=== PATIENT | male | born 1955 | race African-American/Black ===

== ENCOUNTER 2021-03-07 11:08 | Emergency (ER) | payer MEDICAID ==
[~2021-03-07] VITALS: Ht 180.3 cm; Wt 87.0 kg
[~2021-03-07 11:08] MED LIST: ASPI-1497 PO; BACLOFEN; DOCU-138 MT; ERGO400C; GABA800T97 PO; GABAPENTIN; HYDR-4001 MT; MULT-1146 PO; TAMS-11 PO; VICODIN
[2021-03-07 11:10] VITALS: BP 122/91
[2021-03-07] MEDS ORDERED: ACETAMINOPHEN 325MG TABLET PO ONE (12:00)
[2021-03-07] MEDS ORDERED: CARBAMIDE PEROXIDE 6.5% OTIC SOLN 15ML EACH EAR ONE (12:15)
== END 2021-03-07 14:30 | disposition left against medical advice (07) ==
LOC: ER 11:08
DX: M54.2 Cervicalgia (principal); Z79.82 Long term (current) use of aspirin; Z79.899 Other long term (current) drug therapy; Z98.890 Other specified postprocedural states
CPT/HCPCS: 93005; 99284

== ENCOUNTER 2021-07-16 08:45 | Emergency (ER) | payer MEDICARE, MEDICAID ==
[~2021-07-16] VITALS: Ht 188 cm; Wt 84.0 kg
[2021-07-16] MEDS ORDERED: IBUPROFEN 600MG TABLET PO STA (09:35)
[2021-07-16] MEDS ORDERED: ACETAMINOPHEN 325MG TABLET PO STA (09:35)
[2021-07-16 09:57] LABS: CLARITY URINE CLEAR (CLEAR); COLOR URINE YELLOW (YELLOW); KETONES URINE NEGATIVE (NEGATIVE); LEUKOCYTE ESTERASE URINE NEGATIVE (NEGATIVE); NITRITE URINE NEGATIVE (NEGATIVE); OCCULT BLOOD URINE NEGATIVE (NEGATIVE); PROTEIN URINE NEGATIVE (NEGATIVE); SPECIFIC GRAVITY URINE 1.003 (1.005-1.030); UROBILINOGEN URINE 0.2 E.U./dL (0.2-1.0)
[2021-07-16 10:12] VITALS: BP 135/117
[2021-07-16 11:33] LABS: BASOPHILS % 0.9 % (0.0-2.0); EOSINOPHILS % 3.8 % (0.0-5.0); HEMOGLOBIN. 14.3 g/dL (14.0-18.0); LYMPHOCYTES % 47.6 % (20.0-50.0); MEAN CORPUSCULAR HEMOGLOBIN 33.4 pg (28.0-32.0); MEAN CORPUSCULAR VOLUME 100.4 fL (80.0-94.0); MEAN PLATELET VOLUME 8.8 fl (7.4-10.4); MONOCYTES % 4.7 % (2.0-8.0); PLATELET 185 x1000/uL (130-400); RED BLOOD CELL COUNT 4.28 mill/uL (4.7-6.1); RED CELL DISTRIBUTION WIDTH 13.4 % (11.6-14.6)
[2021-07-16 11:41] LABS: CHLORIDE 103 mEq/L (98-107)
[2021-07-16] MEDS ORDERED: IBUP-2028 MT (11:57)
== END 2021-07-16 12:26 | disposition home or self-care (01) ==
LOC: ER 08:45
DX: R51.9 Headache, unspecified (principal); R42 Dizziness and giddiness; G81.94 Hemiplegia, unspecified affecting left nondominant side; B20 Human immunodeficiency virus [HIV] disease; F17.210 Nicotine dependence, cigarettes, uncomplicated; Z71.6 Tobacco abuse counseling; Z87.828 Personal history of other (healed) physical injury and trauma
CPT/HCPCS: 36415; 80053; 81003; 82962; 84484; 85025; 99284; 99406

== ENCOUNTER 2022-05-31 00:29 | Emergency (ER) | payer MEDICARE, MEDICAID ==
[~2022-05-31] VITALS: Ht 188 cm; Wt 84.0 kg
[~2022-05-31 00:29] MED LIST changes: +IBUP-2028 MT
[2022-05-31] MEDS ORDERED: IPRATROPIUM BROMIDE (0.02%) 0.5MG/2.5ML NEB HHN STA (00:46)
[2022-05-31] MEDS ORDERED: PREDNISONE 20MG TABLET PO STA (00:46)
[2022-05-31 00:48] VITALS: BP 126/87
[2022-05-31 01:23] LABS: CHLORIDE 101 mEq/L (98-107)
[2022-05-31 01:28] LABS: HEMATOCRIT. 39.7 % (42.0-52.0); HEMOGLOBIN. 13.6 g/dL (14.0-18.0); MEAN CORPUSCULAR HEMOGLOBIN 34.6 pg (28.0-32.0); MEAN CORPUSCULAR VOLUME 101.4 fL (80.0-94.0); MEAN PLATELET VOLUME 9.4 fl (7.4-10.4); PLATELET 150 x1000/uL (130-400); RED BLOOD CELL COUNT 3.92 mill/uL (4.7-6.1); RED CELL DISTRIBUTION WIDTH 13.1 % (11.6-14.6)
[2022-05-31] MEDS: ALBUTEROL (0.083%) 2.5MG/3ML NEB HHN SCH ×3 (01:46→01:52)
[2022-05-31] MEDS ORDERED: PRED10TA MT (03:32)
[2022-05-31] MEDS ORDERED: ALBU6.7H3 INH (03:32)
[2022-05-31 07:01] LABS: PLATELET ESTIMATE NORMAL
== END 2022-05-31 03:55 | disposition home or self-care (01) ==
LOC: ER 00:29
DX: J44.9 Chronic obstructive pulmonary disease, unspecified (principal); F17.200 Nicotine dependence, unspecified, uncomplicated; Z79.899 Other long term (current) drug therapy
CPT/HCPCS: 36415; 71045; 80053; 83605; 83880; 84484; 85025; 94644; 99285; J7512

== ENCOUNTER 2024-06-19 13:30 | Emergency (ER) | payer MEDICAID, MEDICARE ==
[~2024-06-19] VITALS: Ht 185.4 cm; Wt 82.0 kg
[~2024-06-19 13:30] MED LIST changes: +ALBU6.7H3 INH; +PRED10TA MT; -TAMS-11 PO; +TAMS-54 PO
[2024-06-19 13:48] VITALS: O2SAT 96
[2024-06-19 15:51] LABS: CLARITY URINE CLEAR (CLEAR); COLOR URINE DARK YELLOW (YELLOW); GLUCOSE URINE NEGATIVE (NEGATIVE); KETONES URINE TRACE (NEGATIVE); LEUKOCYTE ESTERASE URINE NEGATIVE (NEGATIVE); NITRITE URINE NEGATIVE (NEGATIVE); OCCULT BLOOD URINE NEGATIVE (NEGATIVE); PH URINE 5.5 (4.5-8.0); PROTEIN URINE NEGATIVE (NEGATIVE); SPECIFIC GRAVITY URINE 1.025 (1.005-1.030)
[2024-06-19] MEDS: TETRACAINE 0.5% OPHTH DROPS 4ML RIGHTEYE ONE (15:54)
[2024-06-19] MEDS: FLUORESCEIN SODIUM 1MG/STRIP RIGHTEYE ONE (15:54)
[2024-06-19] MEDS ORDERED: PROP1DRO2 MT (16:06)
[2024-06-19] MEDS ORDERED: PROP1DRO2 RIGHTEYE (16:13)
[2024-06-19 16:20] VITALS: BP 143/87; PULSE 84; RESP 18; TEMP 36.9; O2SAT 98
== END 2024-06-19 16:22 | disposition home or self-care (01) ==
LOC: ER 13:30
DX: H57.89 Other specified disorders of eye and adnexa (principal); Z79.899 Other long term (current) drug therapy
CPT/HCPCS: 81003; 99283

== ENCOUNTER 2025-01-05 14:47 | Inpatient (IN) | payer MEDICARE, MEDICAID ==
[~2025-01-05] VITALS: Ht 188 cm; Wt 73.5 kg
[~2025-01-05 14:47] MED LIST changes: +PROP1DRO2 RIGHTEYE
[2025-01-05] MEDS: ALBUTEROL (0.083%) 2.5MG/3ML NEB HHN SCH (16:30)
[2025-01-05] MEDS: IPRATROPIUM BROMIDE (0.02%) 0.5MG/2.5ML NEB HHN SCH (16:30)
[2025-01-05 16:32] VITALS: PULSE 82; RESP 23; O2SAT 96
[2025-01-05 16:52] VITALS: PULSE 95; RESP 22; O2SAT 100
[2025-01-05 17:06] LABS: INR 1.0
[2025-01-05 17:07] LABS: BASOPHILS % 0.5 % (0.0-2.0); EOSINOPHILS % 1.4 % (0.0-5.0); HEMATOCRIT. 42.2 % (42.0-52.0); HEMOGLOBIN. 14.2 g/dL (14.0-18.0); LYMPHOCYTES % 15.7 % (20.0-50.0); MEAN PLATELET VOLUME 9.6 fl (7.4-10.4); MONOCYTES % 11.8 % (2.0-8.0); NEUTROPHILS % 70.6 % (40.0-76.0); PLATELET 148 x1000/uL (130-400); RED BLOOD CELL COUNT 4.18 mill/uL (4.7-6.1); RED CELL DISTRIBUTION WIDTH 12.6 % (11.6-14.6)
[2025-01-05] MEDS: METHYLPREDNISOLONE SOD SUCC 125MG/2ML (ACT-O-VIAL) IV ONE (17:08)
[2025-01-05] MEDS: SODIUM CHLORIDE 0.9% (SEPSIS BOLUS) IV ONE (17:08)
[2025-01-05] MEDS: CEFTRIAXONE 1GM/50ML 50 ML IV ONE (17:09)
[2025-01-05 17:11] LABS: CREATININE 0.8 mg/dL (0.6-1.3); TROPONIN I HIGH SENSITIVITY 9 ng/L (3.0-53); UREA NITROGEN BLOOD 9 mg/dL (9-23)
[2025-01-05 17:12] VITALS: PULSE 82; RESP 20; O2SAT 100
[2025-01-05 17:13] LABS: ASPARTATE AMINOTRANSFERASE 24 IU/L (<34); BILIRUBIN DIRECT 0.3 mg/dL (<=3.0)
[2025-01-05 17:14] LABS: BILIRUBIN TOTAL 0.9 mg/dL (0.1-1.0); PROTEIN TOTAL 7.5 g/dL (6.0-8.3)
[2025-01-05] MEDS: AZITHROMYCIN 500MG/250ML 250 ML IV ONE (17:37)
[2025-01-05] MEDS: AZITHROMYCIN 500MG/250ML 250 ML IV NR (17:38)
[2025-01-05 18:22] LABS: CLARITY URINE CLEAR (CLEAR); COLOR URINE DARK YELLOW (YELLOW); GLUCOSE URINE NEGATIVE (NEGATIVE); KETONES URINE 1+ (NEGATIVE); LEUKOCYTE ESTERASE URINE NEGATIVE (NEGATIVE); NITRITE URINE NEGATIVE (NEGATIVE); OCCULT BLOOD URINE NEGATIVE (NEGATIVE); PH URINE 5.5 (4.5-8.0); PROTEIN URINE NEGATIVE (NEGATIVE); SPECIFIC GRAVITY URINE 1.025 (1.005-1.030); UROBILINOGEN URINE 1.0 E.U./dL (0.2-1.0)
[2025-01-05] MEDS: ASPIRIN 81MG TABLET PO ONE (18:50)
[2025-01-05] MEDS: KETOROLAC 15MG/ML VIAL IV ONE (19:31)
[2025-01-05 19:59] LABS: INFLUENZA TYPE A Presumptive Negative (Pres. Neg.); INFLUENZA TYPE B Presumptive Negative (Pres. Neg.)
[2025-01-05 20:00] LABS: RESPIRATORY SYNCYTIAL VIRUS Not Detected (Not Detectd)
[2025-01-05 21:17] VITALS: BP 128/80; PULSE 105; RESP 22; TEMP 36.8; O2SAT 97
[2025-01-06] VITALS (10 sets, daily range): BP systolic 111–128; BP diastolic 60–80; PULSE 53–105; RESP 18–22; TEMP 36.4–36.8072; O2SAT 96–100
[2025-01-06] MEDS: METHYLPREDNISOLONE SOD SUCC 40MG/ML (ACT-O-VIAL) IV SCH (01:00)
[2025-01-06] MEDS: GABAPENTIN 400MG CAPSULE PO SCH (01:13)
[2025-01-06] MEDS: TAMSULOSIN HCL 0.4MG SR CAPSULE PO SCH (01:13)
[2025-01-06] MEDS: BACLOFEN 10MG TABLET PO SCH (01:14)
[2025-01-06] MEDS: IPRATROPIUM/ALBUTEROL 0.5-3(2.5)MG/3ML NEB HHN PRN (01:39)
[2025-01-06 07:56] LABS: HEMATOCRIT. 36.6 % (42.0-52.0); HEMOGLOBIN. 12.3 g/dL (14.0-18.0); MEAN PLATELET VOLUME 10.1 fl (7.4-10.4); PLATELET 137 x1000/uL (130-400); RED BLOOD CELL COUNT 3.63 mill/uL (4.7-6.1); RED CELL DISTRIBUTION WIDTH 12.7 % (11.6-14.6)
[2025-01-06 08:14] LABS: CREATININE 0.8 mg/dL (0.6-1.3); TROPONIN I HIGH SENSITIVITY 4 ng/L (3.0-53)
[2025-01-06 08:15] LABS: UREA NITROGEN BLOOD 10 mg/dL (9-23)
[2025-01-06 08:16] LABS: ASPARTATE AMINOTRANSFERASE 19 IU/L (<34)
[2025-01-06 08:17] LABS: BILIRUBIN TOTAL 0.5 mg/dL (0.1-1.0); PROTEIN TOTAL 5.9 g/dL (6.0-8.3)
[2025-01-06] MEDS: PANTOPRAZOLE 40MG DR TABLET PO SCH (08:27)
[2025-01-06] MEDS: ENOXAPARIN 40MG/0.4ML SYR SUBCUT SCH (08:28)
[2025-01-06] MEDS ORDERED: BENZONATATE 100MG CAPSULE PO PRN (11:45)
[2025-01-06] MEDS: GUAIFENESIN-DM 200MG-20MG/10ML UDC PO PRN (12:34)
[2025-01-06] MEDS: IPRATROPIUM/ALBUTEROL 0.5-3(2.5)MG/3ML NEB HHN SCH (14:07)
[2025-01-06] MEDS: BENZONATATE 100MG CAPSULE PO SCH (16:34)
[2025-01-06] MEDS: ASPIRIN 81MG EC TABLET PO SCH (16:34)
[2025-01-06 20:38] LABS: LYMPHOCYTES % MANUAL 3.0 % (20.0-50.0); MONOCYTES % MANUAL 1.0 % (2.0-8.0); NEUTROPHILS % MANUAL 96.0 % (45.0-75.0); PLATELET ESTIMATE NORMAL
[2025-01-06 22:43] LABS: TROPONIN I HIGH SENSITIVITY 7 ng/L (3.0-53)
[2025-01-07] VITALS (11 sets, daily range): BP systolic 104–129; BP diastolic 58–82; PULSE 57–90; RESP 15–20; TEMP 36.2–37.1; O2SAT 95–100
[2025-01-07] MEDS: GUAIFENESIN 600MG ER TABLET PO SCH (20:32)
[2025-01-07] MEDS: METHYLPREDNISOLONE SOD SUCC 40MG/ML (ACT-O-VIAL) IV SCH (21:34)
[2025-01-08] VITALS (8 sets, daily range): BP systolic 100–130; BP diastolic 77–85; PULSE 58–94; RESP 18; TEMP 35.6–36.4; O2SAT 93–100
[2025-01-08 06:52] LABS: CREATININE 0.7 mg/dL (0.6-1.3); UREA NITROGEN BLOOD 9 mg/dL (9-23)
[2025-01-08 07:00] LABS: BASOPHILS % 0.0 % (0.0-2.0); EOSINOPHILS % 0.0 % (0.0-5.0); HEMATOCRIT. 39.2 % (42.0-52.0); HEMOGLOBIN. 13.2 g/dL (14.0-18.0); LYMPHOCYTES % 11.4 % (20.0-50.0); MEAN PLATELET VOLUME 10.3 fl (7.4-10.4); MONOCYTES % 2.0 % (2.0-8.0); NEUTROPHILS % 86.6 % (40.0-76.0); PLATELET 150 x1000/uL (130-400); RED BLOOD CELL COUNT 3.89 mill/uL (4.7-6.1); RED CELL DISTRIBUTION WIDTH 12.6 % (11.6-14.6)
[2025-01-08] MEDS ORDERED: ALBU18HF2 IH (12:00)
[2025-01-08] MEDS ORDERED: GUAI-740 MT (12:00)
[2025-01-08] MEDS ORDERED: BENZ100C86 MT (12:00)
[2025-01-08] MEDS ORDERED: IPRA3AMP9 HHN (12:00)
[2025-01-08] MEDS ORDERED: P20 MT (12:00)
[2025-01-08] MEDS ORDERED: FAMO20TA8 MT (12:00)
== END 2025-01-08 14:56 | disposition left against medical advice (07) | DRG 189 ==
LOC: ER 14:47 → EDBEDREQTM 19:25 → EDBEDREQ 19:25 → ENRESERV 20:30 → 8WST 20:40
PROVIDERS: ADMIT Internal Medicine; ATTEND Internal Medicine
DX: J96.01 Acute respiratory failure with hypoxia (principal); F17.210 Nicotine dependence, cigarettes, uncomplicated; J45.909 Unspecified asthma, uncomplicated; J20.9 Acute bronchitis, unspecified; N40.0 Benign prostatic hyperplasia without lower urinary tract symptoms; Z53.29 Procedure and treatment not carried out because of patient's decision for other reasons; Z20.822 Contact with and (suspected) exposure to COVID-19; Z87.09 Personal history of other diseases of the respiratory system
CPT/HCPCS: 36415; 71045; 80048; 80053; 80076; 81003; 83036; 83605; 83880; 84145; 84484; 85025; 85379; 87420; 87426; 87804; 93005; 94070; 94640; 94664; 98960; 99285; A4606; J0456; J0696; J1650; J1885; J2919; J7030